=== PATIENT | male | born 1980 | race Caucasian/White ===

== ENCOUNTER 2024-03-26 04:40 | Emergency (ER) | payer MEDICAID ==
[2024-03-26] MEDS ORDERED: Sodium Chloride 0.9% 10 ML Syringe FLUSH PRN (04:49)
[2024-03-26] MEDS: Nicotine 21 MG/24 Hr Patch TRDERM ONE (10:02)
== END 2024-03-26 14:42 | disposition home or self-care (01) ==
LOC: VM.ED 04:40
DX: S06.0XAA Concussion with loss of consciousness status unknown, initial encounter (principal); Z79.899 Other long term (current) drug therapy; V49.9XXA Car occupant (driver) (passenger) injured in unspecified traffic accident, initial encounter
CPT/HCPCS: 70450; 71250; 72125; 74176; 99284; 99285; A9270-GY